=== PATIENT | male | born 1990 | race Caucasian/White ===

== ENCOUNTER 2018-07-22 14:36 | Emergency (ER) | payer MEDICAID | END 2018-07-22 16:32 | disposition home or self-care (01) | LOC: FTE 16:32 | DX: S01.01XA Laceration without foreign body of scalp, initial encounter (principal); W01.198A Fall on same level from slipping, tripping and stumbling with subsequent striking against other object, initial encounter; Y92.9 Unspecified place or not applicable | CPT/HCPCS: 12002; 99283-25 ==